=== PATIENT | female | born 1960 | race Caucasian/White ===

== ENCOUNTER 2018-06-02 11:08 | Day surgery (SDC) | payer OTHER ==
[~2018-06-02] VITALS: Ht 160 cm; Wt 70.3 kg
[2018-06-02 12:01] VITALS: Ht 160 cm; Wt 70.3 kg
[2018-06-02] MEDS ORDERED: amlodipine (12:39)
[2018-06-02] MEDS ORDERED: proventil (12:39)
[2018-06-02] MEDS ORDERED: metoprolol (12:39)
[2018-06-02] MEDS ORDERED: spironolactone (12:39)
[2018-06-02] MEDS ORDERED: losartan (12:39)
[2018-06-02 12:40] VITALS: BP 121/59; PULSE 57; RESP 20
[2018-06-02] MEDS ORDERED: PROPOFOL 20 ML ONE (12:59)
--- NOTE | 2018-06-02 13:10 | PREAC ---
Date/Time of Note Date/Time of Note DATE: 06/02/18 TIME: 13:10 Anesthesia Eval and Record Evaluation Time Pre-Procedure Interview DATE: 06/02/18 TIME: 13:10 Age 58 Sex female NPO: 8 hrs Preoperative diagnosis Colon screening Planned procedure Colonoscopy Past Medical History Past Medical History: Includes (Right breast CA) Cardio: HTN, Dyslipidemia Pulm: Smoking Hx, COPD GI: Obesity Psych: Depression Surgery & Anesthesia Issues No known issue Meds Anticoagulation: No Beta Alejandra within 24 hr: Yes Reported Medications [proventil] No Conflict Check 06/02/18 [spironolactone] No Conflict Check 06/02/18 [losartan] No Conflict Check 06/02/18 [amlodipine] No Conflict Check 06/02/18 [metoprolol] No Conflict Check 06/02/18 Meds reviewed: Yes Allergies Coded Allergies: lisinopril (Verified Allergy, Intermediate, FACE SWELL,TONGUE SWELL, 06/02/18) Allergies Reviewed: Yes Labs/Studies Labs Reviewed: Reviewed by anesthesiologist test: N/A Pre-procedure Exam Last vitals Vital Signs Date Temp Pulse Resp B/P (MAP) Pulse Ox O2 O2 Flow FiO2 Time Delivery Rate 06/02/18 97.3 57 20 121/59 91 Room Air 12:40 (79) Airway: Adequate mouth opening Mallampati: Mallampati I Teeth: Normal Lung: Normal Heart: Normal ASA Physical Status ASA physical status: 3 Emergency: None Pre-operative Attestations Prior to commencing anesthesia and surgery, the patient was re-evaluated, there was verification of: *The patient's identity *The results of appropriate recent lab work and preoperative vital signs *The above evaluation not changing prior to induction *Anesthetic plan, risk benefits, alternative and complications discussed with patient/family; questions answered; patient/family understands, accepts and wishes to proceed. WILMA HERNANDEZ MD Jun 02, 2018 13:10
[2018-06-02] MEDS ORDERED: METOCLOPRAMIDE 10 MG INJ IV PRN (14:00)
[2018-06-02] MEDS ORDERED: LABETALOL HCL 20MG INJ IV PRN (14:00)
[2018-06-02] MEDS ORDERED: hydrALAzine 20 MG INJ IV PRN (14:00)
[2018-06-02] MEDS ORDERED: MIDAZOLAM 1 MG/ML 2 ML INJ IV PRN (14:00)
[2018-06-02] MEDS ORDERED: DIPHENHYDRAMINE 50 MG INJ IV PRN (14:00)
[2018-06-02] MEDS ORDERED: ONDANSETRON 4 MG INJ IV PRN (14:00)
[2018-06-02] MEDS ORDERED: FENTAnyl 50 MCG/ML VIAL IV PRN ×3 (14:00)
[2018-06-02] MEDS ORDERED: EPHEDrine SULFATE 50 MG/5 ML SYG IV PRN (14:00)
[2018-06-02] MEDS ORDERED: MEPERIDINE 25 MG INJ IV PRN (14:00)
[2018-06-02] MEDS ORDERED: OXYCODONE/ACETAMINOPHEN (5/325) TAB PO PRN ×2 (14:00)
[2018-06-02 14:23] VITALS: BP 155/102; PULSE 61; RESP 20
--- NOTE | 2018-06-02 14:23 | PAC ---
Date/Time of Note Date/Time of Note DATE: 06/02/18 TIME: 14:23 Post-Anesthesia Notes Post-Anesthesia Note Last documented vital signs Vital Signs Date Temp Pulse Resp B/P (MAP) Pulse Ox O2 O2 Flow FiO2 Time Delivery Rate 06/02/18 97.3 57 20 121/59 91 Room Air 12:40 (79) Activity: WNL Respiratory function: WNL Cardiovascular function: WNL Mental status: Baseline Pain reasonably controlled: Yes Hydration appropriate: Yes Nausea/Vomiting absent: Yes Comments BP: 155/102, TEMP: 97.3, HR: 62, PULSE OX:91 WILMA HERNANDEZ MD Jun 02, 2018 14:23
== END 2018-06-02 17:38 | disposition home or self-care (01) ==
LOC: GIL 11:08
PROVIDERS: ATTEND Internal Medicine Gastroenterology
DX: Z12.11 Encounter for screening for malignant neoplasm of colon (principal); D12.5 Benign neoplasm of sigmoid colon; K64.8 Other hemorrhoids; I10 Essential (primary) hypertension; E78.5 Hyperlipidemia, unspecified; J44.9 Chronic obstructive pulmonary disease, unspecified; E66.9 Obesity, unspecified; Z68.27 Body mass index [BMI] 27.0-27.9, adult
CPT/HCPCS: 45380; 88305; Z7610